=== PATIENT | female | born 1975 | race Caucasian/White ===

== ENCOUNTER 2020-07-17 11:57 | Emergency (ER) | payer MEDICAID, SELFPAY ==
[2020-07-17 12:56] VITALS: BP 120/76; BP 138/73; PULSE 60; PULSE 65; RESP 18; TEMP 36.6; O2SAT 98; O2SAT 99; BMI 28.1
--- NOTE | 2020-07-17 13:13 | ED.ABDPAIN ---
HPI - Abdominal Pain General Chief Complaint: Abdominal Pain Stated Complaint: LOWER ABD PAIN,N/V X20 MINUTES Time Seen by Provider: 07/17/20 13:11 Source: patient Mode of arrival: ambulatory Limitations: no limitations History of Present Illness HPI narrative: This is a 44-year-old female presenting with complaint of lower abdomen/pelvic pain that is described as cramping like sharp and shooting to the flank ongoing for past 1 hour or so. States she is currently on her menstrual cycle she is trying to conceive. Additionally she has a history of diverticulitis, renal calculi, liver CA status post transplant 6 years ago as [facility], thyroid CA status post thyroidectomy, hepatitis C, liver cirrhosis with encephalopathy resolved since transplant, hypertension, fibromyalgia and surgical history as noted previously of thyroid CA and liver CA status post transplant. States pain feels cramping like sharp and stabbing intermittently in the suprapubic/pelvic area. States she did start her menstrual cycle she is trying to conceive. She denies any vaginal bleeding nor diarrhea. States the pain was so intense that made her sweaty and vomited. MD elicited complaint: abdominal pain and flank pain Pertinent past history: diverticulitis and kidney stones Related Data Date of Last Menstrual Period: 07/17/20 Patient : No Previous Rx's Medication Instructions Recorded oxycodone 5 mg PO BID PRN 3 Days #7 tab 07/17/20 Allergies Allergy/AdvReac Type Severity Reaction Status Date / Time omeprazole [OMEPRAZOLE] Allergy Unknown NIGHTMARES Unverified 03/27/20 19:03 PLASTIC TAPE Allergy Severe RASH, Uncoded 03/27/20 19:03 ITCHING Review of Systems Review of Systems Constitutional: No Weight loss, No Fever, No Chills, No Night Sweats, No Fatigue, No Malaise ENT/Mouth: No Hearing loss, No Ear Pain, No Nasal Congestion, No Sinus Pain, No Hoarseness, No sore throat, No Rhinorrhea, No Swallowing Difficulty Eyes: No Eye Pain, No Swelling, No Redness, No Foreign Body, No Discharge, No Vision Changes Cardiovascular: No Chest Pain, No SOB, No Dyspnea on Exertion, No Orthopnea, No Edema, No Palpitations Respiratory: No Cough, No Sputum, No Wheezing, No Smoke Exposure, No Dyspnea Gastrointestinal: + Nausea, No Vomiting, No Diarrhea, No Constipation, + abdominal Pain, No Hematochezia, No Melena Genitourinary: no irregular bleeding, No Dysuria, No Urinary Frequency, No Hematuria, No Urinary Incontinence, No Urgency, No Flank Pain Musculoskeletal: No joint pain, No Myalgias, No Joint Swelling Skin: No Skin Lesions, No rash Neuro: No Weakness, No Numbness, No Paresthesias, No Loss of Consciousness, No Dizziness, No Headache Psych: No Social Issues Heme/Lymph: No Bruising, No Bleeding,No Lymphadenopathy Endocrine: No Polyuria, No Polydipsia, No Temperature Intolerance Yes all other systems are reviewed and are negative Physical Exam Vital Signs: Vital Signs: Last Vital Signs Temp 97.9 F 07/17/20 12:56 Pulse 70 07/17/20 18:49 Resp 18 07/17/20 18:49 BP 120/79 07/17/20 18:49 Pulse Ox 100 07/17/20 18:49 Body Mass Index 28.1 Reviewed Const: General: cooperative and healthy appearing; No acute distress or intoxicated appearing Nutritional Appearance: average body habitus Orientation/consciousness: patient oriented x3 HENMT: Head: Yes normal to inspection Ears: hearing grossly normal bilaterally Eyes: General: appearance normal, both eyes and all related structures Visual Menard: normal visual menard by confrontation Neck: Neck: Yes normal visual inspection, No positive Brudzinski's sign, No positive Kernig's sign and No tender Thyroid: Thyroid normal Chest: Chest palpation & inspection: normal inspection of the chest Resp: Effort & Inspection: normal respiratory effort Auscultation: clear to auscultation bilaterally Cardio: Jugular venous distension: no JVD Rhythm: regular rhythm Heart sounds: S1 normal heart sound present and S2 normal heart sound present GI: Inspection: Yes normal to inspection Palpation (GI): Soft to palpation, Tenderness to palpation present (GI) in the LLQ and no guarding Percussion: Yes normal to percussion Auscultation: normal bowel sounds : General: Yes no CVA tenderness Back/Spine/Pelvis: Back: no CVA tenderness Skin: General skin exam: no rashes or lesions noted Neuro: General: patient oriented x3 Extrem: General: Yes normal to inspection Course Course Course Narrative: 1320 In review 44-year-old female with significant history as noted above presenting with acute lower abdominal pain with radiation to the flank area described as sharp 10/10 with sudden onset. She is trying to conceive for ever she is on her 2nd day of her menstrual cycle. Pain 9/10 at this time. Hemodynamically stable. Afebrile. No signs or symptoms of systemic infection. Given the description of pain patient will need labs including UA rule out infection, and pelvic ovarian ultrasound rule out cyst/torsion and CT of the abdomen pelvis for obstructive/infectious process. Will treat with IV fluids, antiemetics and analgesia p.r.n.. Reevaluation(s) Reevaluation #1: Has been resting comfortably no acute distress. CT/ultrasound findings reviewed. Now discloses that she does have history of painful for cycles and this very much feels similar but slightly more intensified. Given her history of liver transplant advised against taking NSAIDs, will give her short course of oxycodone. 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 Exam is stable. Stable for discharge. MDM - Abdominal Pain Medical Records Attestation: I reviewed the patient's medical records. Lab Data Attestation: I reviewed the patient's lab results. Result diagrams: 07/17/20 13:20 07/17/20 13:20 Labs: Lab Results 07/17/20 07/17/20 07/17/20 Range/Units 13:20 13:20 13:20 WBC 11.7 H (4.8-10.8) X10*3/uL RBC 4.51 (4.20-5.50) X10*6/uL Hgb 13.4 (12.0-16.0) g/dl Hct 40.0 (37-47) % MCV 88.7 (80-98) fL MCH 29.7 (27.0-33.0) pg MCHC 33.5 (31.0-35.0) g/dl RDW 13.0 (11.0-16.0) % Plt Count 188 (160-400) X10*3/uL MPV 10.6 (9.4-12.3) fL Immature Gran % (Auto) 0.3 (0.0-0.4) % Neut % (Auto) 84.9 H (45-73) % Lymph % (Auto) 10.5 L (20-40) % Jack % (Auto) 3.5 (2-11) % Eos % (Auto) 0.5 (0-4) % Baso % (Auto) 0.3 (0-2) % Lymph # (Auto) 1.2 (1.2-4.9) X10*3/uL Jack # (Auto) 0.4 (0.1-1.2) X10*3/uL Eos # (Auto) 0.1 (0.0-0.4) X10*3/uL Baso # (Auto) 0.0 (0.0-0.2) X10*3/uL Abs Immat Gran (auto) 0.04 H (0.00-0.03) X10*3/uL Absolute Neuts (auto) 9.9 H (2.0-8.3) X10*3/uL Absolute Nucleated RBC 0.000 (0.0-0.012) X10*3/uL Nucleated RBC % (auto) 0.0 (0.0-0.2) /100WBC PT 12.0 (10.8-13.0) SEC INR 1.0 (0.9-1.1) APTT 30.6 (24.1-38.0) SEC Sodium 137 (135-145) mmol/L Potassium 4.2 (3.3-5.1) mmol/l Chloride 105 (96-108) mmol/L Carbon Dioxide 24 (22-29) mmol/L Anion Gap 12 (12-20) BUN 19 H (9-16) mg/dL Creatinine 0.98 (0.5-1.4) mg/dL Estim Creat Clear Calc 82.1 Estimated GFR > 60 Random Glucose 112 (60-115) mg/dL Calcium 8.9 (8.4-10.2) mg/dL Total Bilirubin 0.5 (0.0-1.0) mg/dL AST 17 (5-31) U/L ALT 15 (0-31) U/L Alkaline Phosphatase 77 (39-117) U/L Total Protein 7.4 (6.5-8.0) g/dL Albumin 4.3 (3.5-5.0) g/dL Urine Color Urine Appearance Urine pH (5.0-8.0) Ur Specific [place] (1.005-1.025) Urine Protein (NEG-TRACE) MG/DL Urine Glucose (UA) (NEG) MG/DL Urine Ketones (NEG) MG/DL Urine Blood (NEG) Urine Nitrite (NEG) Ur Leukocyte Esterase (NEG) Urine RBC (0) /HPF Urine WBC (0-4) /HPF Ur Squamous Epith Cells /LPF Urine Bacteria /LPF Urine Test (NEGATIVE) 07/17/20 Range/Units 15:03 WBC (4.8-10.8) X10*3/uL RBC (4.20-5.50) X10*6/uL Hgb (12.0-16.0) g/dl Hct (37-47) % MCV (80-98) fL MCH (27.0-33.0) pg MCHC (31.0-35.0) g/dl RDW (11.0-16.0) % Plt Count (160-400) X10*3/uL MPV (9.4-12.3) fL Immature Gran % (Auto) (0.0-0.4) % Neut % (Auto) (45-73) % Lymph % (Auto) (20-40) % Jack % (Auto) (2-11) % Eos % (Auto) (0-4) % Baso % (Auto) (0-2) % Lymph # (Auto) (1.2-4.9) X10*3/uL Jack # (Auto) (0.1-1.2) X10*3/uL Eos # (Auto) (0.0-0.4) X10*3/uL Baso # (Auto) (0.0-0.2) X10*3/uL Abs Immat Gran (auto) (0.00-0.03) X10*3/uL Absolute Neuts (auto) (2.0-8.3) X10*3/uL Absolute Nucleated RBC (0.0-0.012) X10*3/uL Nucleated RBC % (auto) (0.0-0.2) /100WBC PT (10.8-13.0) SEC INR (0.9-1.1) APTT (24.1-38.0) SEC Sodium (135-145) mmol/L Potassium (3.3-5.1) mmol/l Chloride (96-108) mmol/L Carbon Dioxide (22-29) mmol/L Anion Gap (12-20) BUN (9-16) mg/dL Creatinine (0.5-1.4) mg/dL Estim Creat Clear Calc Estimated GFR Random Glucose (60-115) mg/dL Calcium (8.4-10.2) mg/dL Total Bilirubin (0.0-1.0) mg/dL AST (5-31) U/L ALT (0-31) U/L Alkaline Phosphatase (39-117) U/L Total Protein (6.5-8.0) g/dL Albumin (3.5-5.0) g/dL Urine Color YELLOW Urine Appearance CLEAR Urine pH 5.0 (5.0-8.0) Ur Specific [place] 1.025 (1.005-1.025) Urine Protein NEG (NEG-TRACE) MG/DL Urine Glucose (UA) NEG (NEG) MG/DL Urine Ketones NEG (NEG) MG/DL Urine Blood 2+ H (NEG) Urine Nitrite NEG (NEG) Ur Leukocyte Esterase NEG (NEG) Urine RBC 0-2 (0) /HPF Urine WBC 1-4 (0-4) /HPF Ur Squamous Epith Cells 2+ /LPF Urine Bacteria 1+ /LPF Urine Test NEGATIVE (NEGATIVE) Imaging Data CT scan - abdomen: Radiologist's impression: [place] [id number] CT Scan Report Signed Patient: Yisel Bolaños#: [id number] : 1975Acct:[id number] Age/Sex: 44 / FADM Date: 07/17/20 Loc: .ED Attending Dr: Ordering Physician: Milan Portillo NP Date of Service: 07/17/20 Procedure(s): CT abdomen pelvis w con Accession Number(s): [id number] cc: Milan Portillo IN PROCESS INSPECTOR~ EXAMINATION: CT ABDOMEN AND PELVIS WITH CONTRAST CLINICAL INFORMATION: Pelvic pain. Flank pain. History of liver cancer. COMPARISON: CT abdomen pelvis 04/27/2018 TECHNIQUE: Multidetector volumetric images were obtained from the superior aspect of the liver through the pubic symphysis following administration 85 mL of Omnipaque 350 intravenous contrast. Sagittal and coronal reformatted images were obtained on the technologist's workstation. Oral contrast: No This CT examination was performed using dose optimization techniques as appropriate, variously including the following: *Automated exposure control *Adjustment of mA and/or kV according to patient size (this includes techniques or standardized protocols for targeted exams where dose is matched to indication/reason for exam; i.e. extremities or head) *Use of iterative reconstruction technique DLP: 606 mGy-cm FINDINGS: LUNG BASES: The visualized lung bases are unremarkable. LIVER, GALLBLADDER, AND BILIARY TREE: Status post liver transplant 2013. Mild intrahepatic bile duct dilatation similar to prior studies. Status post cholecystectomy. There is no biliary duct dilatation. PANCREAS: Unremarkable. SPLEEN: There is splenomegaly unchanged since prior CAT scan. The spleen measures 14 cm AP. There are calcifications in the spleen that are unchanged since prior study. ADRENAL GLANDS: Unremarkable. KIDNEYS AND URETERS: There is no renal or ureteral calculus. There is no hydronephrosis. There is normal enhancement of the cortex of both kidneys BLADDER: Unremarkable. GASTROINTESTINAL TRACT: There is no acute abnormality of the bowel. There is no bowel wall thickening /edema. There is no bowel obstruction. There is a moderate volume of stool in the colon. The appendix is normal . The small bowel loops are unremarkable. The stomach is normal. There is no hiatal hernia. ABDOMINAL WALL: No significant hernia is appreciated. LYMPH NODES: Normal. VASCULAR: No change of the perisplenic and periportal varices and paraesophageal varices. Normal enhancement of the aorta and major branch vessels of aorta. PELVIC VISCERA: Uterus is anteverted. No fluid in the cul-de-sac. OSSEOUS STRUCTURES: Unremarkable. CT/CT abdomen pelvis w con IMPRESSION: 1. Status post liver transplant 2013. Stable mild intrahepatic bile duct dilatation. Status post Cholecystectomy. 2. 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 3. No acute abnormality the abdomen or pelvis. 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 TECHNIQUE: Transabdominal and transvaginal imaging was performed. Transvaginal imaging was performed for further evaluation of the endometrium and adnexa. FINDINGS: The uterus is anteverted and is of normal size and echogenicity measuring 7.6 x 3.3 x 3.8 cm. A regular homogeneous endometrium is identified measuring 0.8 cm. The right ovary measures 2.1 x 1.8 x 1.6 cm for a volume of 3.2 mL. The left ovary measures 3.3 x 1.5 x 1.7 cm for a volume of 4.4 mL. There are small echogenic foci in the bilateral ovaries. There is a 1.2 x 1.1 x 1.5 cm mildly irregular cyst of the left ovary with peripheral hyperemia, that likely represents a corpus luteum cyst. There is a small amount of pelvic free fluid. PELVIC DOPPLER: Normal color and spectral Doppler flow is demonstrated in the bilateral ovaries with arterial and venous waveforms identified. US/US pelvic complete IMPRESSION: Scattered echogenic foci within the bilateral ovaries, that may represent hemosiderin or calcification. 1.5 cm corpus luteum cyst within the left ovary. Otherwise normal pelvic ultrasound. Dictated By:JEANE KNUTSON MD Signed By:<Electronically signed by JEANE KNUTSON MD in OV>07/17/20 1723 DD/ 1441 TD/TT: Tablet Making Machine Operator Helper: AZEEM Discharge Plan Discharge Clinical Impression: Dysmenorrhea, Cyst of left ovary Patient Disposition: Home, Self-Care Instructions: Dysmenorrhea (ED), Ovarian Cyst (ED) Additional Instructions: CT scan of the abdomen pelvis did not show any evidence of acute disease The ultrasound of the pelvis and ovaries shows 1.5 cm corpus luteum cyst within the left ovary. Follow-up with your furnace operator oil or gas team as plan Supportive care discussed Return if any concerns or worsening symptoms Thank you Prescriptions: New oxycodone 5 mg tablet 5 mg PO BID PRN (Reason: pain) 3 Days Qty: 7 RF: 0 Referrals: Physician,Unknown [Primary Care Provider] - 1 week Interventions: ED Discharge Assessment Last Done: 07/17/20 19:32 Discharge Date/Time: 07/17/20 19:33 [facility] Past Medical History Medical History (Updated 07/18/20 @ 00:00 by Background Danereyda) Encephalitis Hep C w/ coma, chronic Hepatic cirrhosis Hx of fracture of ankle Hypothyroid Liver cancer Liver cyst, transplanted liver Polycystic disease, ovaries Date of Last Menstrual Period: 07/17/20 Social History Social History Alcohol intake: never Smoking Status: Never smoker Use of substances other than those prescribed or required for medical reasons: No Advance Directives: No Advance Directives Information Provided: No
[2020-07-17] MEDS: ondansetron HCL 4 MG/2 ML VIAL IVPUSH (13:25)
[2020-07-17] MEDS: Morphine Sulfate 4 MG/ML CARTRIDGE IVPUSH (13:25)
[2020-07-17 13:27] LABS: MANUAL DIFF FLAG NO
[2020-07-17] MEDS: 0.9 % Sodium Chloride 1,000 ML 999 ML IV (13:30)
[2020-07-17 13:36] LABS: Partial Thromboplastin Time 30.6 SEC (24.1-38.0)
[2020-07-17 13:40] LABS: Basophils Percent Auto 0.3 % (0-2); Eosinophils Absolute Auto 0.1 X10*3/uL (0.0-0.4); Eosinophils Percent Auto 0.5 % (0-4); Hemoglobin 13.4 g/dl (12.0-16.0); Imm Gran Abs Auto 0.04 X10*3/uL (0.00-0.03); Imm Gran Pct Auto 0.3 % (0.0-0.4); Lymphocytes Absolute Auto 1.2 X10*3/uL (1.2-4.9); Lymphocytes Percent Auto 10.5 % (20-40); Mean Corpuscular HGB Conc 33.5 g/dl (31.0-35.0); Mean Corpuscular Hemoglobin 29.7 pg (27.0-33.0); Mean Corpuscular Volume 88.7 fL (80-98); Mean Platelet Volume 10.6 fL (9.4-12.3); Monocytes Absolute Auto 0.4 X10*3/uL (0.1-1.2); Monocytes Percent Auto 3.5 % (2-11); Neutrophils Absolute Auto 9.9 X10*3/uL (2.0-8.3); Neutrophils Percent Auto 84.9 % (45-73); Platelet Count 188 X10*3/uL (160-400); Red Blood Count 4.51 X10*6/uL (4.20-5.50); White Blood Count 11.7 X10*3/uL (4.8-10.8)
[2020-07-17 13:59] LABS: Alanine Aminotransferase 15 U/L (0-31); Albumin Level 4.3 g/dL (3.5-5.0); Alkaline Phosphatase 77 U/L (39-117); Anion Gap 12 (12-20); Aspartate Amino Transferase 17 U/L (5-31); Bilirubin Total 0.5 mg/dL (0.0-1.0); Blood Urea Nitrogen 19 mg/dL (9-16); Carbon Dioxide 24 mmol/L (22-29); Chloride 105 mmol/L (96-108); Creatinine Clr Calc Pharmacy 82.1; Estimated Glomerular Filt Rate > 60; Glucose Random 112 mg/dL (60-115); Potassium 4.2 mmol/l (3.3-5.1); Sodium 137 mmol/L (135-145); Total Protein 7.4 g/dL (6.5-8.0)
[2020-07-17 14:00] LABS: Calcium 8.9 mg/dL (8.4-10.2)
--- NOTE | 2020-07-17 14:41 | US_ITS ---
EXAMINATION: ULTRASOUND PELVIC, COMPLETE CLINICAL INFORMATION: Pelvic pain, evaluate for cyst COMPARISON: CT of the abdomen and pelvis 07/17/2020 and 04/27/2018. TECHNIQUE: Transabdominal and transvaginal imaging was performed. Transvaginal imaging was performed for further evaluation of the endometrium and adnexa. FINDINGS: The uterus is anteverted and is of normal size and echogenicity measuring 7.6 x 3.3 x 3.8 cm. A regular homogeneous endometrium is identified measuring 0.8 cm. The right ovary measures 2.1 x 1.8 x 1.6 cm for a volume of 3.2 mL. The left ovary measures 3.3 x 1.5 x 1.7 cm for a volume of 4.4 mL. There are small echogenic foci in the bilateral ovaries. There is a 1.2 x 1.1 x 1.5 cm mildly irregular cyst of the left ovary with peripheral hyperemia, that likely represents a corpus luteum cyst. There is a small amount of pelvic free fluid. PELVIC DOPPLER: Normal color and spectral Doppler flow is demonstrated in the bilateral ovaries with arterial and venous waveforms identified. US/US pelvic complete IMPRESSION: Scattered echogenic foci within the bilateral ovaries, that may represent hemosiderin or calcification. 1.5 cm corpus luteum cyst within the left ovary. Otherwise normal pelvic ultrasound.
[2020-07-17 14:50] VITALS: BP 118/64; PULSE 63; RESP 18; O2SAT 99
--- NOTE | 2020-07-17 14:51 | PC.NURSE ---
pt resting comfortably, reports no pain at this time
[2020-07-17 15:10] LABS: Glucose Urine UA NEG (NEG); Leukocyte Esterase Urine NEG (NEG); Nitrite Urine NEG (NEG); Specific Gravity - Urine 1.025 (1.005-1.025); Urine Blood 2+ (NEG); Urine Ketones NEG (NEG); Urine Protein NEG (NEG-TRACE)
[2020-07-17 15:11] LABS: Appearance Urine CLEAR; Color Urine YELLOW
[2020-07-17 15:13] LABS: UPreg QC Valid YES; Urine Pregnancy NEGATIVE (NEGATIVE)
[2020-07-17 15:31] LABS: Bacteria Urine 1+ /LPF; RBC Urine 0-2 /HPF (0); Squamous Epithelial Cell Urine 2+ /LPF
[2020-07-17] MEDS: iohexoL 350 MG/ML 100 ML INFUS..BTL IV (16:51)
--- NOTE | 2020-07-17 16:55 | PC.NURSE ---
pt back from [facility] and ct, reports the cramping is coming back pain at 7/10
[2020-07-17 16:56] VITALS: BP 126/74; PULSE 59; RESP 18; O2SAT 97
[2020-07-17] MEDS: oxyCODONE HCl Immed Release 5 MG TABLET PO (18:48)
[2020-07-17 18:49] VITALS: BP 120/79; PULSE 70; RESP 18; O2SAT 100
== END 2020-07-17 19:33 | disposition home or self-care (01) ==
PROVIDERS: Nurse Practitioner Primary Care; Emergency Provider Internal Medicine
DX: N94.6 Dysmenorrhea, unspecified (principal); N83.12 Corpus luteum cyst of left ovary; Z85.05 Personal history of malignant neoplasm of liver
CPT/HCPCS: 36415; 74177; 76830; 76856; 80053; 81001; 81025; 85025; 85610; 85730; 93975; 96361; 96374; 96375; 99284; J2270; J2405; Q9967

== ENCOUNTER 2021-03-31 13:49 | Emergency (ER) | payer MEDICAID, OTHER, SELFPAY ==
--- NOTE | ~2021-03-31 | CT_ITS ---
EXAMINATION: CT ABDOMEN AND PELVIS WITH CONTRAST CLINICAL INFORMATION: Pelvic pain status post uterine biopsy. Evaluate for perforation. COMPARISON: CT scan of the abdomen and pelvis July 2020 TECHNIQUE: Multidetector volumetric images were obtained from the superior aspect of the liver through the pubic symphysis following administration 85 mL of Omnipaque 350 intravenous contrast. Sagittal and coronal reformatted images were obtained on the technologist's workstation. Oral contrast: No This CT examination was performed using dose optimization techniques as appropriate, variously including the following: *Automated exposure control *Adjustment of mA and/or kV according to patient size (this includes techniques or standardized protocols for targeted exams where dose is matched to indication/reason for exam; i.e. extremities or head) *Use of iterative reconstruction technique DLP: 681 mGy-cm FINDINGS: LUNG BASES: The visualized lung bases are unremarkable. LIVER, GALLBLADDER, AND BILIARY TREE: Patient reportedly status post liver transplant. Surgical clips noted. Minimal biliary ductal dilatation unchanged. No focal hepatic lesion . Gallbladder absent PANCREAS: Unremarkable. SPLEEN: Parenchymal calcification unchanged. Slight irregularity of its surface unchanged. ADRENAL GLANDS: Unremarkable. KIDNEYS AND URETERS: The kidneys are normal in size, shape, and attenuation. No hydronephrosis, hydroureter, or calculi seen. No perinephric stranding. BLADDER: Unremarkable. GASTROINTESTINAL TRACT: The small and large bowel are unremarkable. The appendix is unremarkable. ABDOMINAL WALL: No significant hernia is appreciated. LYMPH NODES: Normal. 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 PELVIC VISCERA: Unremarkable. OSSEOUS STRUCTURES: Unremarkable. CT/CT abdomen pelvis w con IMPRESSION: No evidence for free air No acute abnormality. No change compared with July 2020. Chronic and postsurgical changes as noted.
[2021-03-31 14:11] VITALS: BP 136/80; PULSE 80; RESP 18; TEMP 36.8; O2SAT 98; BMI 29.2
[2021-03-31 14:28] LABS: Hematocrit 38.7 % (37-47); Hemoglobin 13.1 g/dl (12.0-16.0); Mean Corpuscular HGB Conc 33.9 g/dl (31.0-35.0); Mean Corpuscular Hemoglobin 30.5 pg (27.0-33.0); Mean Corpuscular Volume 90.2 fL (80-98); Mean Platelet Volume 10.3 fL (9.4-12.3); Platelet Count 201 X10*3/uL (160-400); Red Blood Count 4.29 X10*6/uL (4.20-5.50); Red Cell Distribution Width 13.2 % (11.0-16.0); White Blood Count 7.5 X10*3/uL (4.8-10.8)
[2021-03-31 14:40] LABS: Anion Gap 13 (12-20); Blood Urea Nitrogen 15 mg/dL (9-16); Calcium 9.7 mg/dL (8.4-10.2); Carbon Dioxide 25 mmol/L (22-29); Chloride 105 mmol/L (96-108); Estimated Glomerular Filt Rate 48; Glucose Random 161 mg/dL (60-115); Potassium 4.6 mmol/L (3.3-5.1); Sodium 138 mmol/L (135-145)
[2021-03-31 17:19] VITALS: BP 122/68; PULSE 60; RESP 18; TEMP 36.6; O2SAT 100
--- NOTE | 2021-03-31 18:08 | ED_ITS ---
HPI - General Adult General Chief complaint: General Medical Stated complaint: vaginal discharge Time Seen by Provider: 03/31/21 17:27 Source: patient Mode of arrival: ambulatory Limitations: no limitations History of Present Illness HPI narrative: 45-year-old female who presents emergency department for evaluation lower abdominal pain and headache. The patient states that she is undergoing infertility workup at [facility]. The patient had a sonohysterogram yesterday with a uterine biopsy. She states that the procedure was done yesterday at 11:00 a.m. and the procedure was very painful. She states that 11:45 a.m. the pain got progressively worse. She states that her pain was severe and was 10/10 and she had to go back to [facility] by ambulance. She passed out. She was told that her heart rate was low. She was treated with morphine and IV fluids. She states that she was not seen by provider after about 5-7 hours and then decided to leave against medical advice. She states that this morning the abdominal pain is better but still present, she states the pain is only there if she pushes on her pelvic area. She also is complaining of a headache which is in the frontal aspect of her head, the headache radiates to the back her head, the headache is a constant, throbbing sensation and is 9/10 at its worst. She denied fever but she did feel chills this morning. She denied nausea, vomiting, chest pain, shortness of breath, dysuria, change in bowel movements. She has noted urinary frequency. She states that when she urinates she notes small brown pieces of material in her urine, she showed me a picture and I believe that these are small blood clots that have a shape to them since they were sitting in the uterus. The patient is a liver transplant patient. She had a liver transplant done at [facility] in 2013 and gets close follow-up. She states that she had hepatit is C which was treated and cured with Harvoni. She also had liver cancer. 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 Related Data Previous Rx's Medication Instructions Recorded oxycodone 5 mg tablet 5 mg PO BID PRN 3 Days #7 tab 07/17/20 Allergies Allergy/AdvReac Type Severity Reaction Status Date / Time omeprazole [OMEPRAZOLE] Allergy Unknown NIGHTMARES Unverified 03/27/20 19:03 PLASTIC TAPE Allergy Severe RASH, Uncoded 03/27/20 19:03 ITCHING Review of Systems Review of Systems: Yes all other systems are reviewed and are negative [facility] Past Medical History [facility] Narrative: Past medical history: Liver cancer, thyroid cancer, hepatitis- C treated with Harvoni. Surgical history: Liver transplant 2014 at [facility]. 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 Social history: The patient denies tobacco, alcohol and drug use. Medical History Encephalitis Hep C w/ coma, chronic Hepatic cirrhosis Hx of fracture of ankle Hypothyroid Liver cancer Liver cyst, transplanted liver Polycystic disease, ovaries Social History Social History Alcohol intake: never Patient Tobacco Use Status: Never used Tobacco Use of substances other than those prescribed or required for medical reasons: No Advance Directives: No Advance Directives Information Provided: No Patient : No Physical Exam Vital Signs: Vital Signs: Last Vital Signs Temp 97.6 F 03/31/21 20:00 Pulse 54 03/31/21 20:00 Resp 17 03/31/21 20:00 BP 117/67 03/31/21 20:00 Pulse Ox 98 03/31/21 20:00 Body Mass Index 29.2 Const: Other: Very pleasant and cooperative, does not appear to be in distress, answers all questions appropriately, very good historian. General: cooperative and no acute distress Orientation/consciousness: oriented to person and oriented to place Limitations: no limitations HENMT: Head: Yes normal to inspection, Yes normocephalic and Yes atraumatic Ears: external ears normal General nose exam: Normal external nose present Face and sinus: Yes normal facial exam Mouth: Normal oral and palatal mucosa present Throat: Yes posterior oropharynx normal Eyes: General: appearance normal, both eyes and all related structures Pupils: Equal, round and reactive pupils present Neck: Neck: Yes normal visual inspection, Yes no lymphadenopathy, Yes trachea midline and Yes supple Chest: Chest palpation & inspection: normal inspection of the chest and normal palpation of entire chest wall Resp: Effort & Inspection: normal respiratory effort and able to speak in complete sentences Auscultation: clear to auscultation bilaterally Cardio: Rate: regular rate Rhythm: regular rhythm Heart sounds: S1 normal heart sound present, S2 normal heart sound present and no murmurs GI: Inspection: Yes normal to inspection Palpation (GI): Soft to palpation, Tenderness to palpation present (GI) suprapubicly (Moderate suprapubic tenderness, no rebound) and no guarding Auscultation: normal bowel sounds : General: Yes no CVA tenderness Back/Spine/Pelvis: Back: no CVA tenderness Skin: General skin exam: no rashes or lesions noted Neuro: General: oriented to person and oriented to place Cranial nerves: Yes CN's II-XII intact bilaterally and Yes Equal, round and reactive pupils present Cognition (Neuro): normal cognition Motor exam (neuro): 5/5 motor strength present throughout Extrem: General: Yes normal to inspection Psych: Appearance: grossly normal Speech and movement: Normal speech and movement present Affect: normal affect Attitude: cooperative Thought process: Normal thought process present Thought content: Normal thought content present Course Course Course Narrative: 45-year-old female who presents to the emergency department for evaluation of lower abdominal pain 2 days after a sonohysterogram with uterine biopsies done at [facility]. The patient is also liver transplant patient and she is on immunosuppressants. 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 The patient also is complaining of a headache and she experienced chills this morning with no documented fever. On her physical examination, her vital signs are stable and she is afebrile. She does have moderate suprapubic tenderness. She has a nonfocal neurologic exam. I am concerned the patient may have had a perforated uterus from the procedure therefore I ordered a CT scan of the abdomen pelvis with IV contrast. Patient is also experiencing headache and I ordered Reglan 10 mg IV, Benadryl 50 mg IV and morphine 4 mg IV for her headache. She was also ordered to get normal saline 1 L IV. 1818: CBC was normal with a WBC of 7.5 H&H of 13.1 and 38.7 and a platelet count of 201,000. BMP revealed an elevated glucose of 160. Urinalysis revealed 2+ blood, microscopic revealed 0-2 rbc's, 1-4 WBCs, 2+ squamous cells, 1+ bacteria. Urine test was negative. After my evaluation, I added liver panel, lipase, lactate, blood cultures x2. 2018: Patient's liver panel was normal. Lipase was not elevated. Lactate was normal. CT scan of the abdomen pelvis with IV contrast revealed no free air, no abnormal fluid collection suggested the patient does not have a perforated uterus. The patient is feeling significantly better after being treated with Reglan, Benadryl and morphine. She states that her headache is completely resolved and she has no abdominal pain. The patient does not want any pain medications for her headache go for her abdominal pain. She was advised to take Tylenol and to continue taking all of her other medications as prescribed by her providers. She was discharged home. Medical Decision Making Lab Data Result diagrams: 03/31/21 14:20 03/31/21 14:20 Labs: Lab Results 03/31/21 03/31/21 03/31/21 Range/Units 14:20 14:20 18:36 WBC 7.5 (4.8-10.8) X10*3/uL RBC 4.29 (4.20-5.50) X10*6/uL Hgb 13.1 (12.0-16.0) g/dl Hct 38.7 (37-47) % MCV 90.2 (80-98) fL MCH 30.5 (27.0-33.0) pg MCHC 33.9 (31.0-35.0) g/dl RDW 13.2 (11.0-16.0) % Plt Count 201 (160-400) X10*3/uL MPV 10.3 (9.4-12.3) fL Absolute Nucleated RBC 0.000 (0.0-0.012) X10*3/uL Nucleated RBC % (auto) 0.0 (0.0-0.2) /100WBC Sodium 138 (135-145) mmol/L Potassium 4.6 (3.3-5.1) mmol/L Chloride 105 (96-108) mmol/L Carbon Dioxide 25 (22-29) mmol/L Anion Gap 13 (12-20) BUN 15 (9-16) mg/dL Creatinine 1.23 (0.5-1.4) mg/dL Estim Creat Clear Calc 66.0 Estimated GFR 48 Random Glucose 161 H (60-115) mg/dL Lactic Acid 1.0 (0.5-2.0) mmol/L Calcium 9.7 D (8.4-10.2) mg/dL Total Bilirubin 0.6 (0.0-1.0) mg/dL Direct Bilirubin 0.2 (0.0-0.5) mg/dL AST 17 (5-31) U/L ALT 16 (0-31) U/L Alkaline Phosphatase 75 (39-117) U/L Total Protein 7.3 (6.5-8.0) g/dL Albumin 4.2 (3.5-5.0) g/dL Lipase 14 (8-78) U/L Discharge Plan Discharge Clinical Impression: Pelvic pain Headache Qualifiers: Headache type: unspecified Headache chronicity pattern: acute headache Intractability: not intractable Qualified Code(s): R51.9 - Headache, unspecified Patient Disposition: Home, Self-Care Instructions: Pelvic Pain (ED) Additional Instructions: Your vital signs were normal, you did not have a fever here in the emergency department. Your laboratory evaluation included a CBC, CMP, lipase, lactate, urinalysis and urine test. These tests were all normal, which is reassuring. You had a CT scan of your abdomen pelvis with IV contrast which did not reveal any abnormalities such as free air in your abdomen or abnormal fluid collection, this suggests that your uterus was not perforated from the procedure or the biopsy. I suspect that your headache in your pelvic pain is related to the biopsy. You may experience bleeding over the next several days, return to emergency department if you bleed through more than 1 or 2 pads per hour. I do not think that you have an infection at this time but we did do blood cultures on you and sometimes you will grow bacteria out of these blood cultures over the next 1-3 days. I do not think that you need an antibiotic at this time but if your blood cultures turn positive then you will need to be on antibiotics, you should check these blood cultures with your doctor and we should call you if they are positive. However if you experience fever, chills, fatigue or weakness then you should return to the emergency department to be re-evaluated for possible infection. Take Tylenol (acetaminophen) 500 mg pills, 2 pills every 4 to 6 hours as needed for pain. Continue all of your other medications as prescribed by your providers. Follow-up with your doctor in 2 days. Please return to the emergency department if your symptoms get worse or if you develop any symptoms that are concerning to you. Prescriptions: No Action oxycodone 5 mg tablet 5 mg PO BID PRN (Reason: pain) 3 Days Qty: 7 RF: 0
[2021-03-31 18:30] VITALS: BP 116/57; PULSE 62; RESP 18; TEMP 36.3; O2SAT 99
[2021-03-31] MEDS: diphenhydrAMINE HCL 50 MG/ML VIAL IVPUSH (18:37)
[2021-03-31] MEDS: Morphine Sulfate 4 MG/ML CARTRIDGE IVPUSH (18:37)
[2021-03-31] MEDS: Metoclopramide HCl 10 MG/2 ML VIAL IVPUSH (18:38)
[2021-03-31] MEDS: 0.9 % Sodium Chloride 1,000 ML 999 ML IV (18:38)
[2021-03-31 18:49] LABS: Alanine Aminotransferase 16 U/L (0-31); Albumin Level 4.2 g/dL (3.5-5.0); Alkaline Phosphatase 75 U/L (39-117); Aspartate Amino Transferase 17 U/L (5-31); Bilirubin Direct 0.2 mg/dL (0.0-0.5); Bilirubin Total 0.6 mg/dL (0.0-1.0); Lipase 14 U/L (8-78); Total Protein 7.3 g/dL (6.5-8.0)
--- NOTE | 2021-03-31 19:00 | PC.NURSE ---
iv inserted, pt medicated per order, vss, will continue to monitor.
[2021-03-31] MEDS: iohexoL 350 MG/ML 100 ML INFUS..BTL IV (19:10)
[2021-03-31 20:00] VITALS: BP 117/67; PULSE 54; RESP 17; TEMP 36.4; O2SAT 98
--- NOTE | 2021-03-31 20:13 | PC.NURSE ---
patient a&ox3, vss, pt states headache resolved. will continue to monitor.
== END 2021-03-31 20:37 | disposition home or self-care (01) ==
PROVIDERS: Emergency Provider Emergency Medicine Emergency Medical Services
DX: R10.2 Pelvic and perineal pain (principal); R51.9 Headache, unspecified; Z79.899 Other long term (current) drug therapy
CPT/HCPCS: 36415; 74177; 80048; 80076; 83605; 83690; 85027; 87040; 96361; 96374; 96375; 99284; J1200; J2270; J2765; Q9967

== ENCOUNTER 2023-09-05 22:28 | Emergency (ER) | payer MEDICAID, OTHER, SELFPAY ==
--- NOTE | ~2023-09-05 | US_ITS ---
EXAMINATION: US PELVIS CLINICAL INFORMATION: Suprapubic pain on left side COMPARISON: 07/17/2020 TECHNIQUE: Ultrasound of the pelvis is performed using both transabdominal and transvaginal transducers along with Doppler. Transvaginal imaging is performed due to inadequate visualization transabdominally. FINDINGS: The uterus measures 7.7 x 3.7 x 4.2 cm. Endometrial stripe measures 0.8 cm in thickness. Nabothian cysts are noted. The right ovary measures 5.0 x 2.4 x 2.3 cm (volume 14.5 mL). There is a thick-walled right ovarian cyst measuring up to 2.4 cm which is suggestive of a corpus luteal cyst. Tiny calcifications also noted in the right ovary. Left ovary measures 3.3 x 1.9 x 1.5 cm, also containing some tiny calcifications. Doppler evaluation demonstrates normal-appearing arterial and venous waveforms in both ovaries. Small amount of free fluid is noted. US/US pelvic and transvaginal IMPRESSION: 1. Small amount of nonspecific pelvic free fluid. 2. Right ovarian cyst measuring up to 2.4 cm, suggestive of a corpus luteal cyst. 3. Tiny calcifications again noted in the ovaries.
[2023-09-05 22:44] VITALS: BP 149/83; PULSE 77; RESP 20; TEMP 36.9; O2SAT 99; BMI 26.2
[2023-09-05 23:00] LABS: MANUAL DIFF FLAG NO
[2023-09-05 23:01] LABS: Basophils Percent Auto 0.5 % (0-2); Eosinophils Absolute Auto 0.2 X10*3/uL (0.0-0.4); Eosinophils Percent Auto 2.4 % (0-4); Hematocrit 39.5 % (37.0-47.0); Hemoglobin 13.7 g/dl (12.0-16.0); Imm Gran Abs Auto 0.01 X10*3/uL (0.00-0.03); Imm Gran Pct Auto 0.1 % (0.0-0.4); Lymphocytes Absolute Auto 3.2 X10*3/uL (1.2-4.9); Lymphocytes Percent Auto 37.5 % (20-40); Mean Corpuscular HGB Conc 34.7 g/dl (31.0-35.0); Mean Corpuscular Hemoglobin 29.5 pg (27.0-33.0); Mean Corpuscular Volume 84.9 fL (80.0-98.0); Mean Platelet Volume 10.2 fL (9.4-12.3); Monocytes Absolute Auto 0.6 X10*3/uL (0.1-1.2); Monocytes Percent Auto 7.2 % (2-11); Neutrophils Absolute Auto 4.4 x10*3/uL (2.0-8.3); Neutrophils Percent Auto 52.3 % (45-73); Platelet Count 212 X10*3/uL (160-400); Red Blood Count 4.65 X10*6/uL (4.20-5.50); White Blood Count 8.5 X10*3/uL (4.8-10.8)
[2023-09-05 23:12] LABS: Anion Gap 11 (12-20); Blood Urea Nitrogen 21 mg/dL (9-16); Calcium 9.5 mg/dL (8.4-10.2); Carbon Dioxide 24 mmol/L (22-29); Chloride 106 mmol/L (96-108); Creatinine Clr Calc Pharmacy 62.8; Estimated Glomerular Filt Rate 49; Glucose Random 116 mg/dL (60-115); Potassium 3.7 mmol/L (3.3-5.1); Sodium 137 mmol/L (135-145)
[2023-09-05 23:44] VITALS: BP 107/62; PULSE 67; RESP 18; TEMP 36.9; O2SAT 99
--- NOTE | 2023-09-05 23:54 | PC.NURSE ---
Addendum entered by Soo Rosas RN 09/06/23 00:07: Pt also reports she had liver transplant in 2012. Original Note: Pt reports that she started having lower sharp abdominal pain 10/10, non radiating at about 930pm with associated nausea. Denies any burning with urination or difficulty urinating. IV placed #20 in L-AC pt using the bathroom at this time. will send urine.
--- NOTE | 2023-09-06 00:07 | PC.NURSE ---
urine sent to lab.
[2023-09-06 00:11] LABS: Appearance Urine Clear; Color Urine Yellow; Glucose Urine UA Negative (Negative); Leukocyte Esterase Urine Negative (Negative); Nitrite Urine Negative (Negative); PH 5.5 (5.0-9.0); Specific Gravity - Urine 1.015 (1.005-1.025); Urine Blood Negative (Negative); Urine Ketones Trace mg/dL (Negative); Urine Protein Negative (Neg-Trace)
--- NOTE | 2023-09-06 00:18 | ED_ITS ---
HPI - Abdominal Pain General Chief Complaint: Abdominal Pain Stated Complaint: abd pain Time Seen by Provider: 09/06/23 00:16 Source: patient Mode of arrival: ambulatory Limitations: no limitations History of Present Illness HPI narrative: Patient with history of small ovarian cysts in the past noticed sudden onset of pain suprapubic and left lower quadrant at 21:30 sharp in character no nausea no vomiting no diarrhea no fever or chills no urinary symptoms Related Data Previous Rx's Medication Instructions Recorded oxycodone 5 mg tablet 5 mg PO BID PRN pain 3 days #7 tabs 07/17/20 ibuprofen 600 mg tablet 600 mg PO Q6H PRN fever or pain 09/06/23 #30 tabs Allergies Allergy/AdvReac Type Severity Reaction Status Date / Time omeprazole [OMEPRAZOLE] Allergy Unknown NIGHTMARES Verified 09/05/23 22:44 PLASTIC TAPE Allergy Severe RASH, Uncoded 03/27/20 19:03 ITCHING Review of Systems Review of Systems Yes all other systems are reviewed and are negative PMFSH Past Medical History Medical History Liver cancer Encephalitis Hep C w/ coma, chronic Hx of fracture of ankle Liver cyst, transplanted liver Hypothyroid Hepatic cirrhosis Polycystic disease, ovaries Social History Social History Alcohol intake: never Patient Tobacco Use Status: Never used Tobacco Smoked in Last 30 Days: No Use of substances other than those prescribed or required for medical reasons: No Advance Directives: No Advance Directives Information Provided: No Patient : No Physical Exam ED Vital Signs: Vital Signs - 24 hr 09/05/23 22:44 09/05/23 23:44 09/06/23 02:00 Temperature 98.4 F 98.4 F 98.3 F Pulse Rate 77 67 57 Respiratory Rate 20 18 16 Blood Pressure 149/83 H 107/62 104/67 Pulse Oximetry 99 99 100 Oxygen Delivery Method Room Air Room Air Room Air BiPAP 09/06/23 03:40 Temperature Pulse Rate 62 Respiratory Rate 16 Blood Pressure 112/75 Pulse Oximetry 100 Oxygen Delivery Method Room Air BMI result Body Mass Index 26.2 Appearance: Alert. Oriented X3. No acute distress. ENT: Pharynx normal. Oral Mucosa moist Neck: Normal inspection. Neck supple. CVS: Normal heart rate and rhythm. Pulses normal. Respiratory: No respiratory distress. Equal air entry bilateral, Abdomen: Soft mild tenderness suprapubic and left lower quadrant no rebound tenderness or guarding. Bowel sounds are present, no mass palpable, no CVA tenderness Skin: Skin warm and dry. Normal skin color. Normal skin turgor. Extremities: No lower extremity edema. No calf tenderness Neuro: Oriented X 3. Medical Decision Making Medical Decision Making [facility] Narrative: Patient with acute onset of left lower quadrant pain and suprapubic area likely ovarian cyst will get sonogram to rule out hemorrhagic ovarian cyst Ultrasound showed 2.5 cm right-sided ovarian cyst nonhemorrhagic patient feeling much better discharge patient home on ibuprofen Differential Diagnosis Differential Diagnoses: The differential diagnosis associated with the presentation includes Ovarian cyst/UTI Lab Data [facility] Lab Attestation statement: I reviewed the patient's lab results. 09/05/23 22:56 09/05/23 22:56 Labs: Lab Results 09/05/23 09/06/23 Range/Units 22:56 00:03 WBC 8.5 (4.8-10.8) X10*3/uL RBC 4.65 (4.20-5.50) X10*6/uL Hgb 13.7 (12.0-16.0) g/dl Hct 39.5 (37.0-47.0) % MCV 84.9 (80.0-98.0) fL MCH 29.5 (27.0-33.0) pg MCHC 34.7 (31.0-35.0) g/dl RDW 13.0 (11.0-16.0) % Plt Count 212 (160-400) X10*3/uL MPV 10.2 (9.4-12.3) fL Immature Gran % (Auto) 0.1 (0.0-0.4) % Neut % (Auto) 52.3 (45-73) % Lymph % (Auto) 37.5 (20-40) % [place] % (Auto) 7.2 (2-11) % Eos % (Auto) 2.4 (0-4) % Baso % (Auto) 0.5 (0-2) % Lymph # (Auto) 3.2 (1.2-4.9) X10*3/uL [place] # (Auto) 0.6 (0.1-1.2) X10*3/uL Eos # (Auto) 0.2 (0.0-0.4) X10*3/uL Baso # (Auto) 0.0 (0.0-0.2) X10*3/uL Abs Immat Gran (auto) 0.01 (0.00-0.03) X10*3/uL Absolute Neuts (auto) 4.4 (2.0-8.3) x10*3/uL Absolute Nucleated RBC 0.000 (0.0-0.012) X10*3/uL Nucleated RBC % (auto) 0.0 (0.0-0.2) /100WBC Sodium 137 (135-145) mmol/L Potassium 3.7 (3.3-5.1) mmol/L Chloride 106 (96-108) mmol/L Carbon Dioxide 24 (22-29) mmol/L Anion Gap 11 L (12-20) BUN 21 H (9-16) mg/dL Creatinine 1.19 (0.5-1.4) mg/dL Estim Creat Clear Calc 62.8 Estimated GFR 49 Random Glucose 116 H (60-115) mg/dL Calcium 9.5 (8.4-10.2) mg/dL Urine Color Yellow Urine Appearance Clear Urine pH 5.5 (5.0-9.0) Ur Specific [place] 1.015 (1.005-1.025) Urine Protein Negative (Neg-Trace) mg/dL Urine Glucose (UA) Negative (Negative) mg/dL Urine Ketones Trace (Negative) mg/dL Urine Blood Negative (Negative) Urine Nitrite Negative (Negative) Ur Leukocyte Esterase Negative (Negative) Urine Test NEGATIVE (NEGATIVE) Medications Administered Discontinued Medications Generic Name Dose Route Start Last Admin Trade Name Freq PRN Reason Stop Dose Admin Ketorolac Tromethamine 30 mg 09/06/23 03:11 09/06/23 03:36 Ketorolac Tromethamine 30 Mg/Ml Vial IVPUSH 09/06/23 03:12 30 mg ONCE ONE Administration Discharge Plan Discharge Clinical Impression: Ovarian cyst Patient Disposition: Home, Self-Care Instructions: Ovarian Cyst (ED) Additional Instructions: You have 2.4 cm small right ovarian cyst Ovarian cyst should dissolve in two months Take ibuprofen for pain as needed Follow with mill helper if pain persists Prescriptions: New ibuprofen 600 mg tablet 600 mg PO Q6H PRN (Reason: fever or pain) Qty: 30 0RF No Action oxycodone 5 mg tablet 5 mg PO BID PRN (Reason: pain) 3 Days Qty: 7 0RF Interventions: ED Discharge Assessment Last Done: 09/06/23 03:42 Discharge Date/Time: 09/06/23 03:45
[2023-09-06 00:43] LABS: UPreg QC Valid YES; Urine Pregnancy NEGATIVE (NEGATIVE)
[2023-09-06 02:00] VITALS: BP 104/67; PULSE 57; RESP 16; TEMP 36.8; O2SAT 100
[2023-09-06] MEDS: Ketorolac Tromethamine 30 MG/ML VIAL IVPUSH (03:36)
[2023-09-06 03:40] VITALS: BP 112/75; PULSE 62; RESP 16; O2SAT 100
== END 2023-09-06 03:45 | disposition home or self-care (01) ==
PROVIDERS: Emergency Provider Internal Medicine
DX: N83.202 Unspecified ovarian cyst, left side (principal); R10.32 Left lower quadrant pain; R10.2 Pelvic and perineal pain; Z79.899 Other long term (current) drug therapy
CPT/HCPCS: 36415; 76830; 76856; 80048; 81003; 81025; 85025; 96374; 99284; J1885